=== PATIENT | female | born 1935 | race Caucasian/White ===

== ENCOUNTER 2016-05-06 14:44 | Emergency (ER) | payer MEDICARE ==
[2016-05-06] MEDS ORDERED: Albuterol 2.5 MG/3 ML NEB.SOL* (0.083%) INH ONE (17:33)
[2016-05-06] MEDS ORDERED: Ipratropium 0.5MG/2.5ML NEB* 0.5 MG/2.5 ML NEB.SOLN INH ONE (17:33)
--- NOTE | 2016-05-06 17:34 | UC ---
Respiratory Complaint HPI - HPI Summary HPI Summary: 80 yo female with a hx of COPD presents with 2 1/2 wk hx of sinus pressure and pain/cough and wheezing using rescue inhaler feels winded - History of Current Complaint Chief Complaint: UCGeneralIllness Stated Complaint: CHEST CONGESTION, AND COUGH Time Seen by Provider: 05/06/16 17:01 Hx Obtained From: Patient Onset/Duration: Gradual Onset, Lasting Weeks - 2 1/2 Timing: Constant Severity Initially: Mild Severity Currently: Moderate Pain Intensity: 0 Character: Cough: Productive Aggravating Factors: Nothing Alleviating Factors: Bronchodilator Associated Signs And Symptoms: Positive: Dyspnea, Nasal Congestion, Sinus Discomfort - Allergies/Home Medications Allergies/Adverse Reactions: Allergies Allergy/AdvReac Type Severity Reaction Status Date / Time Penicillins Allergy Severe Swelling Verified 05/06/16 16:27 Of Face,Lips,& Throat Tetanus Toxoid, Adsorbed Allergy Severe See Comment Verified 05/06/16 16:27 bee stings Allergy Severe Swelling Uncoded 05/06/16 16:27 Of Face,Lips,& Throat PMH/Surg Hx/FS Hx/Imm Hx Endocrine History Of: Denies: Diabetes Cardiovascular History Of: Reports: Hypertension Denies: Pacemaker/ICD Respiratory History Of: Reports: Asthma - Surgical History Surgical History: Yes Surgery Procedure, Year, and Place: teeth extracted; R knee meniscus repair; GB removed,cataracts - Social History Alcohol Use: Rare Substance Use Type: None Smoking Status (MU): Former Smoker Review of Systems Constitutional: Negative Skin: Negative Eyes: Negative ENT: Nasal Discharge Respiratory: Cough Cardiovascular: Negative Gastrointestinal: Negative Genitourinary: Negative Motor: Negative Neurovascular: Negative Musculoskeletal: Negative Neurological: Negative Psychological: Negative All Other Systems Reviewed And Are Negative: Yes Physical Exam Triage Information Reviewed: Yes Appearance: Well-Appearing, No Pain Distress, Well-Nourished Vital Signs: Initial Vital Signs Temp 97.8 F 05/06/16 16:28 Pulse 82 05/06/16 16:28 Resp 18 05/06/16 16:28 BP 92/71 05/06/16 16:28 Pulse Ox 100 05/06/16 16:28 Eyes: Positive: Conjunctiva Clear ENT: Positive: Hearing grossly normal. Negative: Nasal congestion, Nasal drainage, Tonsillar exudate, Trismus, Muffled/hoarse voice Neck: Positive: Nontender, No Lymphadenopathy Respiratory: Positive: No respiratory distress, No accessory muscle use, Wheezing Cardiovascular: Positive: RRR, No Murmur. Negative: Tachycardia, Bradycardia Musculoskeletal: Positive: ROM Intact, No Edema Neurological: Positive: Alert Skin Exam: Normal UC Diagnostic Evaluation - Laboratory O2 Sat by Pulse Oximetry: 100 - normal/not hypoxic Re-Evaluation - Re-Evaluation First Eval Re-Evaluation Time: 19:40 Change: Improved - lungs CTA Respiratory Course/Dx - Differential Dx/Diagnosis Provider Diagnoses: acute bronchitis Discharge - Discharge Plan Condition: Stable Disposition: HOME Prescriptions: Azithromycin TAB* [Zithromax TAB*] 250 mg PO DAILY #6 tab Patient Education Materials: Acute Bronchitis (ED) Referrals: Stephania Yanez MD [Primary Care Provider] - 4 Days
--- NOTE | 2016-05-06 18:07 | RAD ---
INDICATION: Cough and wheeze COMPARISON: Chest x-ray May 09, 2008 TECHNIQUE: PA and lateral dual-energy views were obtained. FINDINGS: Bones/Soft Tissues: There are no acute bony findings. Cardiomediastinal: The cardiomediastinal silhouette is normal. Lungs: There are no infiltrates. Pleura: There are no pleural effusions. Other: None IMPRESSION: NO ACTIVE DISEASE.
[2016-05-06 18:47] VITALS: BP 153/68
== END 2016-05-06 18:59 | disposition home or self-care (01) ==
LOC: UCEAST 14:44
DX: J20.9 Acute bronchitis, unspecified (principal); Z88.0 Allergy status to penicillin; Z87.891 Personal history of nicotine dependence
CPT/HCPCS: 71020; 99212; G0463; J7644

== ENCOUNTER 2016-07-25 09:38 | Emergency (ER) | payer MEDICARE ==
[2016-07-25 10:11] VITALS: BP 119/60
--- NOTE | 2016-07-25 10:51 | UC ---
Syncope/New Syncope HPI - HPI Summary HPI Summary: The patient comes in today for: 1. Cough, dyspnea, syncope: Onset: Cough x 4 days. Her syncopal episode was last night. Palliative/provocative: Nothing makes her symptoms better or worse. Quality: "Sounds like a horn." Region: Lungs. Severity: 0/10 Time: Cough lasts a few seconds. Associated symptoms: Event: She was in the shower last night. One minute, she was showering and the next she knows is that she is on the floor of the shower. She tried to get up, but fell back down. She screamed and yelled for her . ABout 15 minutes later, he came. She was pulled up by him and she walked to her bed where she went to sleep. Chest pain: None. Lightheaded/near syncope ever since she got up this morning. She denies any heart problems, but she had a TIA 4-5 years ago. She has COPD, emphysema. * - History Of Current Complaint Chief Complaint: UCRespiratory Stated Complaint: URI Time Seen by Provider: 07/25/16 10:44 Hx Obtained From: Patient, Family/Manager [employer] Hx Last Menstrual Period: n/a - Allergies/Home Medications Allergies/Adverse Reactions: Allergies Allergy/AdvReac Type Severity Reaction Status Date / Time Penicillins Allergy Severe Swelling Verified 05/06/16 16:27 Of Face,Lips,& Throat Tetanus Toxoid, Adsorbed Allergy Severe See Comment Verified 05/06/16 16:27 bee stings Allergy Severe Swelling Uncoded 05/06/16 16:27 Of Face,Lips,& Throat Home Medications: Home Medications Fluticasone HFA 220 mcg(NF) [Flovent Hfa 220 Mcg(NF)] 07/25/16 [History] PMH/Surg Hx/FS Hx/Imm Hx Previously Healthy: No Endocrine History Of: Reports: Dyslipidemia Denies: Diabetes, Thyroid Disease, Hyperthyroidism, Hypothyroidism Cardiovascular History Of: Reports: Hypertension Denies: Cardiac Disorders, Pacemaker/ICD, Myocardial Infarction, Congestive Heart Failure, Atrial Fibrillation, Deep Vein Thrombosis, Bleeding Disorders Respiratory History Of: Reports: Asthma Denies: COPD, Bronchitis, Pneumonia, Pulmonary Embolism GI/ History Of: Denies: Gastroesophageal Reflux, Ulcer, Gastrointestinal Bleed, Gall Bladder Disease, Kidney Stones, Diverticulitis, Renal Disease, Urosepsis Neurological History Of: Reports: TIA - She had this about 4 years ago. Denies: CVA, Dementia, Seizures, Migraine Psychological History Of: Reports: Depression Denies: Anxiety, Bipolar Disorder, Schizophrenia, Post Traumatic Stress Disorder Cancer History Of: Denies: Lung Cancer, Colorectal Cancer, Breast Cancer, Prostate Cancer, Cervical Cancer Other History Of: Anticoagulant Therapy - Plavix Negative For: HIV, Hepatitis B, Hepatitis C - Surgical History Surgical History: Yes Surgery Procedure, Year, and Place: teeth extracted; R knee meniscus repair; GB removed,cataracts - Family History Known Family History: Positive: Cardiac Disease, Hypertension - Social History Occupation: Retired Alcohol Use: Rare Substance Use Type: None Smoking Status (MU): Former Smoker Review of Systems Constitutional: Negative Skin: Negative Eyes: Negative ENT: Nasal Discharge - white. Respiratory: Cough - White Cardiovascular: Negative Gastrointestinal: Negative Genitourinary: Negative All Other Systems Reviewed And Are Negative: Yes Physical Exam Triage Information Reviewed: Yes Appearance: Well-Appearing, No Pain Distress, Well-Nourished Vital Signs: Initial Vital Signs Temp 98.1 F 07/25/16 09:57 Pulse 90 07/25/16 09:57 Resp 20 07/25/16 09:57 BP 119/60 07/25/16 09:57 Pulse Ox 97 07/25/16 09:57 Vital Signs Reviewed: Yes Eyes: Positive: Conjunctiva Clear. Negative: Discharge ENT: Positive: Other: - Slight tenderness to palpation of the maxillary sinuses.. Negative: Hearing grossly normal - Hard of hearing, but does OK with raised voice., Pharyngeal erythema, Nasal congestion, Nasal drainage, TM bulging , TM dull, TM red, Tonsillar swelling, Tonsillar exudate Dental: Negative: Gross Decay/Caries @, Dental Fracture @ Neck: Positive: Supple, Nontender, No Lymphadenopathy, Other: - No bruits and carotid artery pulses were 1+/2 x 2. Respiratory: Positive: Lungs clear, No respiratory distress, No accessory muscle use. Negative: Crackles, Wheezing, Expiration Cardiovascular: Positive: RRR, No Murmur Abdomen Description: Positive: Nontender, No Organomegaly, Soft. 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 I told her that these symptoms could be the only warning of something serious as a stroke or CO. She still did not want to go to the ER. She was told of her treatment options and at this time she agrees only to switching out her albuterol for Combivent and an antibiotic if she does not improve (and particularly if she gets worse) over the next few days. - Differential Dx/Diagnosis Differential Diagnosis/HQI/PQRI: Dysrhythmia, Seizure, Transient Ischemic Attack Provider Diagnoses: Upper respiratory infection. COPD. Syncopal episode. Near syncope. Discharge - Discharge Plan Condition: Stable Disposition: HOME Patient Education Materials: Near Syncope (ED), Syncope (ED), COPD (Chronic Obstructive Pulmonary Disease) (ED), Sinusitis (ED) Referrals: Stephania Yanez MD [Primary Care Provider] - As Soon As Possible (If you are not going to the ER at this time, please contact your primary care provider's office for an appointment as soon as you can. If you get worse, please be seen sooner in the ER.)
== END 2016-07-25 11:35 | disposition left against medical advice (07) ==
LOC: UCEAST 09:38
DX: J06.9 Acute upper respiratory infection, unspecified (principal); J44.9 Chronic obstructive pulmonary disease, unspecified; R55 Syncope and collapse; E78.5 Hyperlipidemia, unspecified; I10 Essential (primary) hypertension; J45.909 Unspecified asthma, uncomplicated; F32.9 Major depressive disorder, single episode, unspecified; Z87.891 Personal history of nicotine dependence; Z86.73 Personal history of transient ischemic attack (TIA), and cerebral infarction without residual deficits; Z88.0 Allergy status to penicillin; Z88.7 Allergy status to serum and vaccine; Z91.030 Bee allergy status
CPT/HCPCS: 93005; 99212; G0463

== ENCOUNTER 2017-03-03 12:46 | Emergency (ER) | payer MEDICARE ==
[2017-03-03 13:06] VITALS: BP 147/63
--- NOTE | 2017-03-03 13:44 | UC ---
Skin Complaint HPI - HPI Summary HPI Summary: 81 yo with left ant byrd pain /redness and swelling x 2-3 days feels like a byrd splint no f/c no n/c no trauma hx of angioedema with PCN - History of Current Complaint Chief Complaint: UCLowerExtremity Time Seen by Provider: 03/03/17 13:26 Stated Complaint: RED PAIN FRONT OF LOWER LEG Hx Obtained From: Patient Hx Last Menstrual Period: n/a Onset/Duration: Gradual Onset, Lasting Days Skin Exposure Onset/Duration: Minutes Ago Timing: Constant Onset Severity: Mild Current Severity: Mild Pain Intensity: 2 Pain Scale Used: 0-10 Numeric Character: Swelling, Redness, Painful Aggravating Factor(s): Touch, Other - wt bearing Alleviating Factor(s): Nothing Associated Signs & Symptoms: Positive: Tenderness - Allergy/Home Medications Allergies/Adverse Reactions: Allergies Allergy/AdvReac Type Severity Reaction Status Date / Time Penicillins Allergy Severe Swelling Verified 03/03/17 12:54 Of Face,Lips,& Throat Tetanus Toxoid, Adsorbed Allergy Severe See Comment Verified 03/03/17 12:54 bee stings Allergy Severe Swelling Uncoded 03/03/17 12:54 Of Face,Lips,& Throat Review of Systems Constitutional: Negative Skin: Negative Eyes: Negative ENT: Negative Respiratory: Negative Cardiovascular: Negative Gastrointestinal: Negative Genitourinary: Negative Motor: Negative Neurovascular: Negative Musculoskeletal: Negative Neurological: Negative Psychological: Negative Is Patient Immunocompromised?: No All Other Systems Reviewed And Are Negative: Yes PMH/Surg Hx/FS Hx/Imm Hx Previously Healthy: Yes Other History Of: Anticoagulant Therapy - Plavix Negative For: HIV, Hepatitis B, Hepatitis C - Surgical History Surgical History: Yes Surgery Procedure, Year, and Place: teeth extracted; R knee meniscus repair; GB removed,cataracts, APPENDECTOMY - Family History Known Family History: Positive: Cardiac Disease, Hypertension - Social History Alcohol Use: Rare Substance Use Type: None Smoking Status (MU): Former Smoker Physical Exam Triage Information Reviewed: Yes Appearance: Well-Appearing, No Pain Distress, Well-Nourished Vital Signs: Initial Vital Signs Temp 97.6 F 03/03/17 12:50 Pulse 84 03/03/17 12:50 Resp 18 03/03/17 12:50 BP 147/63 03/03/17 12:50 Pulse Ox 100 03/03/17 12:50 Vital Signs Reviewed: Yes Eyes: Positive: Conjunctiva Clear ENT: Negative: Hearing grossly normal, Nasal congestion, Nasal drainage, Trismus , Muffled voice, Hoarse voice Neck: Positive: Supple Respiratory: Positive: Lungs clear, Normal breath sounds, No respiratory distress Cardiovascular: Positive: RRR, No Murmur Abdomen Description: Positive: Nontender, No Organomegaly Musculoskeletal: Positive: ROM Intact, Edema @ - left pre tibial Neurological: Positive: Alert Skin Exam: Normal Course/Dx - Diagnoses Provider Diagnoses: cellulitis left lower extremity Discharge - Discharge Plan Condition: Stable Disposition: HOME Prescriptions: DOXYcycline CAP(*) [DOXYcycline 100MG CAP(*)] 100 mg PO BID #14 cap Referrals: Stephania Yanez MD [Primary Care Provider] - 3 Days (recheck in 3-5 days) Additional Instructions: recheck sooner if symptoms worsen Images Front/Back of Body, Lg (Titus): 1 - slight swelling and erythema/warm/no obvious skin defects but has cracked/ dry skin, normal gait , good dorsalis pedal pulse
== END 2017-03-03 13:53 | disposition home or self-care (01) ==
LOC: UCEAST 12:46
DX: Z87.891 Personal history of nicotine dependence (principal); L03.116 Cellulitis of left lower limb
CPT/HCPCS: 99212; G0463

== ENCOUNTER 2017-07-21 16:38 | Emergency (ER) | payer MEDICARE ==
[2017-07-21] MEDS ORDERED: NS 0.9% 1000 ML* 1,000 ML IV ONE (17:12)
[2017-07-21 17:34] LABS: ABS Basophils 0 10^3/ul (0-0.2); ABS Eosinophils 0.1 10^3/ul (0-0.6); ABS Lymphocytes 0.2 10^3/ul (1.0-4.8); ABS Monocytes 0.4 10^3/ul (0-0.8); ABS Nucleated RBC 0 10^3/ul; Eosinophil % 1.5 % (0-6); Hematocrit 42 % (35-47); Mean Corpuscular HGB Conc 33 g/dl (31-36); Mean Corpuscular Hemoglobin 30 pg (27-31); Mean Corpuscular Volume 91 fL (80-97); Mean Platelet Volume 7.7 um3 (7.4-10.4); Nucleated Red Blood Cells % 0; Platelet Count 178 10^3/ul (150-450); Red Blood Count 4.62 10^6/ul (4.0-5.4); Red Cell Distribution Width 14 % (10.5-15); White Blood Count 5.8 10^3/ul (3.5-10.8)
[2017-07-21 17:45] LABS: INR 0.98 (0.77-1.02)
[2017-07-21 17:48] LABS: EGFR Non-African American 50.7 (>60)
--- NOTE | 2017-07-21 18:17 | RAD ---
INDICATION: Cough, sepsis. History of COPD. COMPARISON: May 06, 2016 TECHNIQUE: Dual energy PA and routine lateral views of the chest were obtained. REPORT: Elevated lung volumes. Mild prominence of the interstitial markings. No focal pulmonary lesion, compelling alveolar consolidation, pleural effusion, pneumothorax. The heart, pulmonary vasculature, and mediastinal contours are unremarkable. IMPRESSION: Stigmata of obstructive lung disease. No acute pulmonary or cardiac process evident.
[2017-07-21] MEDS ORDERED: Oseltamivir CAP* 75 MG CAP PO ONE (18:32)
[2017-07-21 19:01] VITALS: BP 118/54
--- NOTE | 2017-07-21 21:29 | ED ---
Mahad Prado Thomas, scribed for Mario Alberto Coto MD on 07/21/17 at 1709 . HPI Febrile Illness - HPI Summary HPI Summary: The patient is an 81 year old female accompanied by two family members and brought in by ambulance with generalized weakness, fever, a mildly productive cough, nausea, and vomiting for the last three days. She reports decreased PO intake. The patient denies urinary symptoms, constipation, diarrhea, or any pain. - History of Current Complaint Chief Complaint: EDWeakness Time Seen by Provider: 07/21/17 16:46 Hx Obtained From: Patient Hx Last Menstrual Period: n/a Onset/Duration: Started Days Ago - 3, Still Present Timing: Constant Current Severity: Moderate Pain Intensity: 0 Pain Scale Used: 0-10 Numeric Aggravating Factors: Nothing Alleviating Factors: Nothing Associated Signs and Symptoms: Other: - Generalized weakness, mildly productive cough, nausea, vomiting, decreased PO intake; NEGATIVE: urinary symptoms, constipation, diarrrhea, pain - Allergy/Home Medications Allergies/Adverse Reactions: Allergies Allergy/AdvReac Type Severity Reaction Status Date / Time MS Penicillins [Penicillins] Allergy Severe Swelling Verified 03/03/17 12:54 Of Face,Lips,& Throat MS Tetanus Toxoid, Adsorbed Allergy Severe See Comment Verified 03/03/17 12:54 [Tetanus Toxoid, Adsorbed] bee stings Allergy Severe Swelling Uncoded 03/03/17 12:54 Of Face,Lips,& Throat Home Medications: Home Medications Cholecalciferol TAB* [Vitamin D TAB*] 1,000 unit PO DAILY 07/21/17 [History Confirmed 07/21/17] Citalopram TAB* [CeleXA TAB*] 10 mg PO DAILY 07/21/17 [History Confirmed ] Clopidogrel TAB* [Plavix TAB*] 75 mg PO DAILY 07/21/17 [History Confirmed ] Cyanocobalamin TAB* [Vitamin B12 TAB*] 1,000 mcg PO DAILY 07/21/17 [History Confirmed 07/21/17] DOXYcycline CAP(*) [DOXYcycline 100MG CAP(*)] 100 mg PO BID 07/21/17 [History Confirmed 07/21/17] Hydrochlorothiazide TAB* [Hydrodiuril TAB*] 12.5 mg PO DAILY 07/21/17 [History Confirmed 07/21/17] Ibuprofen TAB* [Advil TAB*] 200 mg PO Q6H PRN 07/21/17 [History Confirmed ] Lovastatin (NF) [Mevacor (NF)] 40 mg PO DAILY 07/21/17 [History Confirmed ] Magnesium Oxide [Magnesium] 250 mg PO DAILY 07/21/17 [History Confirmed 07/21/17 ] Meclizine TAB* [Antivert 12.5 TAB*] 25 mg PO TID PRN 07/21/17 [History Confirmed 07/21/17] Nortriptyline CAP* [Pamelor CAP*] 10 mg PO BEDTIME 07/21/17 [History Confirmed 07/21/17] Potassium Chlor TAB* [Klor Con ER TAB*] 10 meq PO DAILY 07/21/17 [History Confirmed 07/21/17] PMH/Surg Hx/FS Hx/Imm Hx Endocrine/Hematology History: Reports: Hx Anticoagulant Therapy - Plavix Denies: Hx Diabetes, Hx Thyroid Disease Cardiovascular History: Reports: Hx Hypertension Denies: Hx Congestive Heart Failure, Hx Deep Vein Thrombosis, Hx Myocardial Infarction, Hx Pacemaker/ICD Respiratory History: Reports: Hx Asthma, Hx Chronic Obstructive Pulmonary Disease (COPD) Denies: Hx Lung Cancer, Hx Pneumonia, Hx Pulmonary Embolism GI History: Denies: Hx Gall Bladder Disease, Hx Gastrointestinal Bleed, Hx Ulcer, Hx Urosepsis History: Denies: Hx Kidney Stones, Hx Renal Disease Sensory History: Denies: Hx Hearing Aid Neurological History: Reports: Hx Transient Ischemic Attacks (TIA) - She had this about 4 years ago. Denies: Hx Dementia, Hx Migraine, Hx Seizures Psychiatric History: Reports: Hx Depression Denies: Hx Anxiety, Hx Panic Disorder, Hx Schizophrenia, Hx Bipolar Disorder - Cancer History Hx Chemotherapy: No Hx Radiation Therapy: No - Surgical History Surgery Procedure, Year, and Place: teeth extracted; R knee meniscus repair; GB removed,cataracts, APPENDECTOMY - Immunization History Date of Tetanus Vaccine: Unknown Infectious Disease History: No Infectious Disease History: Denies: Hx Clostridium Difficile, Hx Hepatitis, Hx Human Immunodeficiency Virus (HIV), Hx of Known/Suspected MRSA, Hx Shingles, Hx Tuberculosis, Hx Known/ Suspected VRE, Hx Known/Suspected VRSA, History Other Infectious Disease, Traveled Outside the [place] in Last 30 Days - Family History Known Family History: Positive: Cardiac Disease, Hypertension - Social History Alcohol Use: Rare Substance Use Type: Reports: None Smoking Status (MU): Former Smoker Review of Systems Positive: Fever, Other - Generalized weakness Positive: Cough Positive: Vomiting, Nausea, Other - Decreased PO intake; NEGATIVE: constipation. Negative: Diarrhea Positive: no symptoms reported All Other Systems Reviewed And Are Negative: Yes Physical Exam - Summary Physical Exam Summary: Appearance: The patient is well-nourished in no acute distress and in no acute pain. Skin: The skin is warm and dry and skin color reflects adequate perfusion. HEENT: The head is normocephalic and atraumatic. The pupils are equal and reactive. The conjunctivae are clear and without drainage. Nares are patent and without drainage. Mouth reveals dry mucous membranes and the throat is without erythema and exudate. The external ears are intact. The ear canals are patent and without drainage. The tympanic membranes are intact. Neck: the neck is supple with full range of motion and non-tender. There are no carotid bruits. There is no neck vein distension. Respiratory: Chest is non-tender. Lungs are clear to auscultation and breath sounds are symmetrical and equal. Cardiovascular: Heart is tachycardic and regular rhythm. There is no murmur or rub auscultated. There is no peripheral edema and pulses are symmetrical and equal. Abdomen: Abdomen is soft and non-tender. There are normal bowel sounds heard in all four quadrants and there is no organomegaly palpated. Musculoskeletal: There is no back tenderness noted. Extremities are non-tender with full range of motion. There is good capillary refill. There is no peripheral edema or calf tenderness elicited. Neurological: Patient is alert and oriented to person, place and time. The patient has symmetrical motor strength in all four extremities. Cranial nerves are grossly intact. Deep tendon reflexes are symmetrical and equal in all four extremities. Psychiatric: The patient has an appropriate affect and does not exhibit any anxiety or depression. Triage Information Reviewed: Yes Vital Signs On Initial Exam: Initial Vitals Temp Pulse Resp BP Pulse Ox 101.2 F 103 20 113/51 97 07/21/17 16:42 07/21/17 16:42 07/21/17 16:42 07/21/17 16:42 07/21/17 16:42 Vital Signs Reviewed: Yes Diagnostics - Vital Signs Vital Signs Temp Pulse Resp BP Pulse Ox 07/21/17 16:42 101.2 F 103 20 113/51 97 - Laboratory Lab Results: Lab Results 07/21/17 07/21/17 07/21/17 Range/Units 17:20 17:20 17:20 WBC 5.8 (3.5-10.8) 10^3/ul RBC 4.62 (4.0-5.4) 10^6/ul Hgb 14.0 (12.0-16.0) g/dl Hct 42 (35-47) % MCV 91 (80-97) fL MCH 30 (27-31) pg MCHC 33 (31-36) g/dl RDW 14 (10.5-15) % Plt Count 178 (150-450) 10^3/ul MPV 7.7 (7.4-10.4) um3 Neut % (Auto) 87.2 H (38-83) % Lymph % (Auto) 4.0 L (25-47) % Hood % (Auto) 6.8 (0-7) % Eos % (Auto) 1.5 (0-6) % Baso % (Auto) 0.5 (0-2) % Absolute Neuts (auto) 5.0 (1.5-7.7) 10^3/ul Absolute Lymphs (auto) 0.2 L (1.0-4.8) 10^3/ul Absolute Monos (auto) 0.4 (0-0.8) 10^3/ul Absolute Eos (auto) 0.1 (0-0.6) 10^3/ul Absolute Basos (auto) 0 (0-0.2) 10^3/ul Absolute Nucleated RBC 0 10^3/ul Nucleated RBC % 0 INR (Anticoag Therapy) 0.98 (0.77-1.02) APTT 26.2 (26.0-36.3) seconds Sodium 134 L (139-145) mmol/L Potassium 3.4 L (3.5-5.0) mmol/L Chloride 99 L (101-111) mmol/L Carbon Dioxide 26 (22-32) mmol/L Anion Gap 9 (2-11) mmol/L BUN 27 H (6-24) mg/dL Creatinine 1.04 H (0.51-0.95) mg/dL Est GFR ( Amer) 65.2 (>60) Est GFR (Non-Af Amer) 50.7 (>60) BUN/Creatinine Ratio 26.0 H (8-20) Glucose 126 H (70-100) mg/dL Lactic Acid (0.5-2.0) mmol/L Calcium 8.9 (8.6-10.3) mg/dL Total Bilirubin 0.40 (0.2-1.0) mg/dL AST 16 (13-39) U/L ALT 13 (7-52) U/L Alkaline Phosphatase 78 (34-104) U/L Troponin I 0.01 (<0.04) ng/mL C-Reactive Protein 12.02 H (< 5.00) mg/L Total Protein 6.6 (6.4-8.9) g/dL Albumin 3.9 (3.2-5.2) g/dL Globulin 2.7 (2-4) g/dL Albumin/Globulin Ratio 1.4 (1-3) Influenza A (Rapid) (Negative) Influenza B (Rapid) (Negative) 07/21/17 07/21/17 Range/Units 17:20 17:23 WBC (3.5-10.8) 10^3/ul RBC (4.0-5.4) 10^6/ul Hgb (12.0-16.0) g/dl Hct (35-47) % MCV (80-97) fL MCH (27-31) pg MCHC (31-36) g/dl RDW (10.5-15) % Plt Count (150-450) 10^3/ul MPV (7.4-10.4) um3 Neut % (Auto) (38-83) % Lymph % (Auto) (25-47) % Hood % (Auto) (0-7) % Eos % (Auto) (0-6) % Baso % (Auto) (0-2) % Absolute Neuts (auto) (1.5-7.7) 10^3/ul Absolute Lymphs (auto) (1.0-4.8) 10^3/ul Absolute Monos (auto) (0-0.8) 10^3/ul Absolute Eos (auto) (0-0.6) 10^3/ul Absolute Basos (auto) (0-0.2) 10^3/ul Absolute Nucleated RBC 10^3/ul Nucleated RBC % INR (Anticoag Therapy) (0.77-1.02) APTT (26.0-36.3) seconds Sodium (139-145) mmol/L Potassium (3.5-5.0) mmol/L Chloride (101-111) mmol/L Carbon Dioxide (22-32) mmol/L Anion Gap (2-11) mmol/L BUN (6-24) mg/dL Creatinine (0.51-0.95) mg/dL Est GFR ( Amer) (>60) Est GFR (Non-Af Amer) (>60) BUN/Creatinine Ratio (8-20) Glucose (70-100) mg/dL Lactic Acid 1.0 (0.5-2.0) mmol/L Calcium (8.6-10.3) mg/dL Total Bilirubin (0.2-1.0) mg/dL AST (13-39) U/L ALT (7-52) U/L Alkaline Phosphatase (34-104) U/L Troponin I (<0.04) ng/mL C-Reactive Protein (< 5.00) mg/L Total Protein (6.4-8.9) g/dL Albumin (3.2-5.2) g/dL Globulin (2-4) g/dL Albumin/Globulin Ratio (1-3) Influenza A (Rapid) Positive A (Negative) Influenza B (Rapid) Negative (Negative) Result Diagrams: 07/21/17 17:20 07/21/17 17:20 Lab Statement: Any lab studies that have been ordered have been reviewed, and results considered in the medical decision making process. - Radiology CXR Xray Interpretation: No Acute Changes - IMPRESSION: Stigmata of obstructive lung disease. No acute pulmonary or cardiac process evident. Dr. Coto has reviewed this report. Radiology Interpretation Completed By: Radiologist Course/Dx - Course Course Of Treatment: Ms. Francois and her both came down with URI symptoms a couple days ago. She has not been eating and has gotten very weak. She felt very much improved after IV NS here and was found to be positive for Influenza A. - Diagnoses Provider Diagnoses: Dehydration, Influenza Discharge - Sign-Out/Discharge Documenting (check all that apply): Discharge - Discharge Plan Condition: Stable Disposition: HOME Prescriptions: Oseltamivir CAP* [Tamiflu CAP*] 75 mg PO BID #19 cap Patient Education Materials: Dehydration (ED), Influenza (ED) Referrals: Stephania Yanez MD [Primary Care Provider] - 3 Days Additional Instructions: Follow up with your primary care physician in three days. Return to the emergency department for any new or worsening symptoms. - Billing Disposition and Condition Condition: STABLE Disposition: HOME The documentation as recorded by the Mahad castellanos Thomas accurately reflects the service I personally performed and the decisions made by , Mario Alberto Coto MD.
== END 2017-07-21 19:00 | disposition home or self-care (01) ==
LOC: ED 16:38
DX: J10.1 Influenza due to other identified influenza virus with other respiratory manifestations (principal); E86.0 Dehydration; Z87.891 Personal history of nicotine dependence; Z88.0 Allergy status to penicillin
CPT/HCPCS: 36415; 71046; 80053; 83605; 84484; 85025; 85610; 85730; 86140; 87040; 87502; 96360; 99283; A9270-GY

== ENCOUNTER 2017-09-11 09:13 | Emergency (ER) | payer MEDICARE ==
[2017-09-11 09:22] VITALS: BP 129/65
--- NOTE | 2017-09-11 10:57 | RAD ---
INDICATION: Left rib injury. TECHNIQUE: 5 views of the left ribs were obtained. FINDINGS: No fracture or significant focal osseous abnormality is seen. There is a small calcific nodule which projects over the left midlung. The lungs are otherwise hyperinflated and clear. IMPRESSION: NO EVIDENCE FOR FRACTURE.
--- NOTE | 2017-09-11 11:21 | UC ---
Mehran Prado Gabriel, [facility] 09/11/17 at 1014 . Truncal Trauma HPI - HPI Summary HPI Summary: This patient is a 81 year old F [place] [facility] [place] her s /p fall that occurred 09-08-17 but she states that pain has gotten worse since. Pt fell over a weed stevan and landed on her left side injuring her ribs. The patient rates the pain 6/10 in severity. Symptoms aggravated by deep breaths. Patient reports left flank pain and trouble breathing secondary to pain. MD note: Vital signs stable, pulse ox 100, respiratory rate 17, 6/10 left thorax pain. Visit history: noncontributory to present complaint. She is on antihypertensive medications. Nurse note: left sided rib injury after tripping over a weed stevan in the garage landed on cement - History Of Current Complaint Chief Complaint: UCGeneralIllness Stated Complaint: SIDE PAIN Time Seen by Provider: 09/11/17 09:59 Hx Obtained From: Patient Hx Last Menstrual Period: n/a Onset/Duration: Still Present Onset Of Pain: Immediate Severity Initially: Mild Severity Currently: Moderate Pain Intensity: 6 Pain Scale Used: 0-10 Numeric Mechanism Of Injury: Blunt Trauma Aggravating Factor(s): Deep Breathing - Allergies/Home Medications Allergies/Adverse Reactions: Allergies Allergy/AdvReac Type Severity Reaction Status Date / Time Penicillins Allergy Swelling Verified 09/11/17 09:23 bee stings Allergy Severe Swelling Uncoded 09/11/17 09:56 Of Face,Lips,& Throat PMH/Surg Hx/FS Hx/Imm Hx Cardiovascular History: Hypertension Respiratory History: COPD, Asthma Neurological History: TIA Other History Of: Anticoagulant Therapy - Plavix Negative For: HIV, Hepatitis B, Hepatitis C - Surgical History Surgical History: Yes Surgery Procedure, Year, and Place: teeth extracted; R knee meniscus repair; GB removed,cataracts, APPENDECTOMY - Family History Known Family History: Positive: Cardiac Disease, Hypertension - Social History Occupation: Retired Lives: With Family Alcohol Use: Rare Substance Use Type: None Smoking Status (MU): Former Smoker Review of Systems Constitutional: Other - mechanical fall Genitourinary: Other - left flank pain All Other Systems Reviewed And Are Negative: Yes - Comments Additional Review of Systems Comments: Positive: left flank pain and trouble breathing secondary to pain. Physical Exam - Summary Physical Exam Summary: Appearance: The patient is well-appearing, is in no pain distress, and is well- nourished. Eyes: Conjunctiva are clear. ENT: The hearing is grossly normal, the pharynx is normal, and the TMs are normal. There is no muffled or hoarse voice. Neck: The neck is supple and there is no lymphadenopathy. Respiratory: The chest is nontender. The lungs are clear, there are normal breath sounds, and there is no respiratory distress. Cardiovascular: Heart is regular rate and rhythm. There is no murmur. Abdomen: The abdomen is soft and nontender. There is no organomegaly. Bowel sounds: present Musculoskeletal: Strength is intact. The patient moves all extremities. THE PAIN SPREADS FROM THE ANTERIOR AXILLARY LINE AT T8 AROUND TO THE LEFT CHEST AND INTO THE SPINE. THE LEFT THORAX HAS NO CREPITUS. THERE IS POINT TENDERNESS OVER THE 8TH, 9TH, 10TH, AND 11TH RIB ON THE LEFT AXILLARY AREA. BREATHING IS UNCOMFORTABLE, NO CVA TENDERNESS Neurological: The patient is alert. Psychological: The patient displays age appropriate behavior Skin: Negative for rashes. Triage Information Reviewed: Yes Vital Signs: Initial Vital Signs Temp 97 F 09/11/17 09:17 Pulse 83 09/11/17 09:17 Resp 17 09/11/17 09:17 BP 129/65 09/11/17 09:17 Pulse Ox 100 09/11/17 09:17 Vital Signs Reviewed: Yes Diagnostics - Radiology Rib Xray Radiology Interpretation Completed By: Radiologist - NO EVIDENCE FOR FRACTURE. Dr. James has reviewed this report. Truncal Trauma Course/Dx - Course Course Of Treatment: 81 y/o with fall on left thorax. X-ray is consistent with contusion without injury the lung or rib fracture. I discussed with the patient a need for deep breathing and that it will take a while for it completely resolved. She understands the need to return for further evaluation if she develops a cough or temperature that might suggest PNA. Elevated BP but has current hypertension diagnosis and treatment. This should be rechecked a few times in the next month. Medications have been included in the original chart and reviewed. - Differential Dx/Diagnosis Differential Diagnosis/HQI/PQRI: Other - rib bruise vs fracture Provider Diagnoses: contusion left thorax Discharge - Sign-Out/Discharge Documenting (check all that apply): Discharge/Admit/Transfer - Discharge Plan Condition: Stable Disposition: HOME Patient Education Materials: Rib Fracture (ED) Referrals: Stephania Yanez MD [Primary Care Provider] - Additional Instructions: Your blood pressure reading today was 129/65. Follow-up with your primary care provider within 4 weeks for blood pressure readings and further evaluation. First number should be 120 or less. WE DISCUSSED: 1. You have bruised your ribs. There is no evidence of fracture. 2. Use warm moist heat to this area in the morning. Use ice if you feel pain after activity during the day. 3. There is no evidence that you have hurt your kidney. 4. If you have any increased pain, temperature, difficulty breathing or a new cough, go to the emergency department. 5. As we discussed, this condition can take a while to heal, even though your ribs are not broken. - Billing Disposition and Condition Condition: STABLE Disposition: Home The documentation as recorded by the Mehran castellanos Gabriel accurately reflects the service I personally performed and the decisions made by me, Baldev James MD.
== END 2017-09-11 11:17 | disposition home or self-care (01) ==
LOC: UCEAST 09:13
DX: S20.212A Contusion of left front wall of thorax, initial encounter (principal); J44.9 Chronic obstructive pulmonary disease, unspecified; I10 Essential (primary) hypertension; Z88.0 Allergy status to penicillin; Z91.030 Bee allergy status; Z87.891 Personal history of nicotine dependence; W19.XXXA Unspecified fall, initial encounter; Y92.9 Unspecified place or not applicable
CPT/HCPCS: 81003; 87086; 99211; G0463

== ENCOUNTER 2019-06-05 13:37 | Emergency (ER) | payer MEDICARE ==
[2019-06-05 14:08] VITALS: BP 147/64
--- NOTE | 2019-06-05 14:43 | UC ---
Syncope/New Syncope HPI - HPI Summary HPI Summary: 83 yo woman, last well on 06/01, but felt so unwell on 06/02 that she did not get out of bed. Her called their daughter on 06/03, concerned becasue she still seemed unwell and noted that she had fainted in the afternoon of 06/03, and also had vomitied. Daughter checked in, made her eat something, temp was 100.4 Onset of back pain on 06/02, prior to the fall, which is worse with inspiration and movement. Took advil yesterday without feeling better, and has not taken anything for pain today Past hx of stroke and COPD, depression and atypical headaches. . - History Of Current Complaint Chief Complaint: UCBackPain Stated Complaint: BACK PAIN Time Seen by Provider: 06/05/19 14:30 Hx Obtained From: Patient, Family/[employer] - here with her daughter Hx Last Menstrual Period: n/a Onset/Duration: Gradual Onset, Lasting Days Activity At Onset: Unknown Context: Unwitnessed, Loss Of Consciousness - with amnesia for the event. Pain Intensity: 5 Aggravating Factor(s): Position Change, Exertion Alleviating Factor(s): Rest Associated Signs And Symptoms: Positive: Decreased Oral Intake, Dizzy, Lightheadedness, Vomiting, Weakness - Risk Factors Cardiac Risk Factors: Hypertension, Prior ME Dysrhythmia Risk Factors: Age Greater Than 45 Risk Factor(s): Plavix - Allergies/Home Medications Allergies/Adverse Reactions: Allergies Allergy/AdvReac Type Severity Reaction Status Date / Time Penicillins Allergy Swelling Verified 06/05/19 14:08 bee stings Allergy Severe Swelling Uncoded 06/05/19 14:08 Of Face,Lips,& Throat Home Medications: Home Medications Cholecalciferol TAB* [Vitamin D TAB*] 1,000 unit PO DAILY 07/21/17 [History Confirmed 06/05/19] Citalopram TAB* [CeleXA TAB*] 10 mg PO DAILY 07/21/17 [History Confirmed ] Clopidogrel TAB* [Plavix TAB*] 75 mg PO DAILY 07/21/17 [History Confirmed ] Cyanocobalamin TAB* [Vitamin B12 TAB*] 1,000 mcg PO DAILY 07/21/17 [History Confirmed 06/05/19] Hydrochlorothiazide TAB* [Hydrodiuril TAB*] 12.5 mg PO DAILY 07/21/17 [History Confirmed 06/05/19] Lovastatin (NF) [Mevacor (NF)] 40 mg PO DAILY 07/21/17 [History Confirmed ] Magnesium Oxide [Magnesium] 250 mg PO DAILY 07/21/17 [History Confirmed 06/05/19 ] Meclizine TAB* [Antivert 12.5 TAB*] 25 mg PO TID PRN 07/21/17 [History Confirmed 06/05/19] Potassium Chlor TAB* [Klor Con ER TAB*] 10 meq PO DAILY 07/21/17 [History Confirmed 06/05/19] Nortriptyline CAP* [Nortriptylline CAP*] 1 dose PO ONCE PRN 06/05/19 [History Confirmed 06/05/19] PMH/Surg Hx/FS Hx/Imm Hx Endocrine History: Dyslipidemia Cardiovascular History: Hypertension Respiratory History: COPD Neurological History: CVA - past stroke, Other - atypical headaches Psychological History: Depression Other History Of: Anticoagulant Therapy - Plavix Negative For: HIV, Hepatitis B, Hepatitis C - Surgical History Surgical History: Yes Surgery Procedure, Year, and Place: teeth extracted; R knee meniscus repair; GB removed,cataracts, APPENDECTOMY - Family History Known Family History: Positive: Cardiac Disease, Hypertension - Social History Occupation: Retired Lives: With Family - lives with her , whose health is precarious Alcohol Use: Rare Substance Use Type: None Smoking Status (MU): Former Smoker Review of Systems All Other Systems Reviewed And Are Negative: Yes Constitutional: Positive: Fever - initially, none now, Fatigue Skin: Positive: Negative Eyes: Negative: Blurred Vision, Diplopia ENT: Positive: Other - hearing loss Respiratory: Positive: Cough - some cough, but not increased from baseline. using increased albuterol x 2 days, about 2x per day, but denies shortnessof breath Cardiovascular: Negative: Palpitations, Chest Pain Gastrointestinal: Positive: Vomiting - one episode, Nausea, Other - no stool x 4 day. Negative: Abdominal Pain Genitourinary: Positive: Negative. Negative: Dysuria, Hematuria, Frequency, Urgency Motor: Positive: Weakness Neurovascular: Positive: Negative Musculoskeletal: Positive: Other: - pain in low thoracic, high lumbar area Neurological/Mental Status: Positive: Negative Psychological: Positive: Negative Is Patient Immunocompromised?: Yes Physical Exam Triage Information Reviewed: Yes Appearance: Ill-Appearing - looks flushed, alert but mildly slow in responses, Other: - Has hearing loss and does not have her hearing aides with her Vital Signs: Initial Vital Signs Temp 96.9 F 06/05/19 14:01 Pulse 91 06/05/19 14:01 Resp 18 06/05/19 14:01 BP 147/64 06/05/19 14:01 Pulse Ox 98 06/05/19 14:01 Eye Exam: Normal, Other - JACKLYN, normal eom ENT: Positive: Pharynx normal, TMs normal Neck: Positive: Supple, Nontender, No Lymphadenopathy Respiratory: Positive: Decreased breath sounds, Crackles - bilateral basilar crackles. Cardiovascular: Positive: RRR, No Murmur, Pulses Normal Abdomen Description: Positive: Nontender, No Organomegaly, Soft Musculoskeletal: Positive: Strength Intact, Other: - tenderness to palpation T 10 to L2 Neurological: Positive: Alert, Muscle Tone Normal Psychological Exam: Normal Skin Exam: Normal Syncope Course/Dx - Course Course Of Treatment: Discussed concern of unwitnessed syncopy with amnesia for the event, back pain preceding her fall, and the many diagnostic possibilities given history of stroke. Advised would be best served in the ER for evaluation including labs. - Differential Dx/Diagnosis Differential Diagnosis/HQI/PQRI: Cerebral Vascular Accident, Coronary Artery Disease, Hypovolemia, Seizure, Transient Ischemic Attack Provider Diagnosis: Syncope - Physician Notification/Consults Discussed Patient Care With: [place] nurse at [facility] [place] Time Discussed With Above Provider: 14:55 Discharge ED - Sign-Out/Discharge Documenting (check all that apply): Patient Departure All imaging exams completed and their final reports reviewed: No Studies - Discharge Plan Condition: Stable Disposition: [facility] Patient Education Materials: Syncope (ED) Referrals: Lata Anderson DO [Primary Care Provider] - Additional Instructions: Please go directly to the emergency room for evaluation - Billing Disposition and Condition Condition: STABLE Disposition: [facility]
== END 2019-06-05 15:09 | disposition short-term general hospital (02) ==
LOC: UCEAST 13:37
DX: R55 Syncope and collapse (principal); R11.10 Vomiting, unspecified; R42 Dizziness and giddiness; M54.9 Dorsalgia, unspecified; I10 Essential (primary) hypertension; J44.9 Chronic obstructive pulmonary disease, unspecified; E78.5 Hyperlipidemia, unspecified; Z88.0 Allergy status to penicillin; Z91.030 Bee allergy status; Z79.899 Other long term (current) drug therapy; Z86.73 Personal history of transient ischemic attack (TIA), and cerebral infarction without residual deficits; Z79.02 Long term (current) use of antithrombotics/antiplatelets; Z87.891 Personal history of nicotine dependence; N39.0 Urinary tract infection, site not specified; E86.0 Dehydration; M62.838 Other muscle spasm; Z79.01 Long term (current) use of anticoagulants
CPT/HCPCS: 93005; 99212; G0463

== ENCOUNTER → 2019-06-05 15:32 | Emergency (ER) | payer MEDICARE ==
[~2019-06-05 15:32] MED LIST: Cyclobenzaprine TAB* 10 MG PO ONE; NS 0.9% 1000 ML** 1,000 ML IV ONE; Sulfamethox/Trimethoprim DS 800/160* TAB PO ONE
--- NOTE | 2019-06-05 17:56 | ED ---
Syncope/Near Syncope - HPI Summary HPI Summary: Patient complains of mid back pain 4 days, possible fall, one episode of syncope 2 days ago, amd fatigue, fever, decreased by mouth intake, weakness, one episode of vomiting over the past 2 days. Patient sent by urgent care to ED for further evaluation. Patient has history of syncope. Denies cough, sore throat, CP, SOB, diarrhea, change in urine. Medical history is HTN, TIA, COPD. - History Of Current Complaint Chief Complaint: EDFall Time Seen by Provider: 06/05/19 17:34 Hx Obtained From: Patient, Family/Reservations Specialist Onset/Duration: Gradual Onset, Lasting Days Timing: Intermittent Episode Lasting Context: Unwitnessed Activity At Onset: Exertion Associated Head Trauma: No Aggravating Factor(s): Position Change Alleviating Factor(s): Spontaneous Resolution Associated Signs And Symptoms: Vomiting - Allergies/Home Medications Allergies/Adverse Reactions: Allergies Allergy/AdvReac Type Severity Reaction Status Date / Time Penicillins Allergy Swelling Verified 06/05/19 16:01 bee stings Allergy Severe Swelling Uncoded 06/05/19 14:08 Of Face,Lips,& Throat Home Medications: Home Medications Cholecalciferol TAB* [Vitamin D TAB*] 1,000 unit PO DAILY 07/21/17 [History Confirmed 06/05/19] Citalopram TAB* [CeleXA TAB*] 10 mg PO DAILY 07/21/17 [History Confirmed ] Clopidogrel TAB* [Plavix TAB*] 75 mg PO DAILY 07/21/17 [History Confirmed ] Cyanocobalamin TAB* [Vitamin B12 TAB*] 1,000 mcg PO DAILY 07/21/17 [History Confirmed 06/05/19] Lovastatin (NF) [Mevacor (NF)] 40 mg PO DAILY 07/21/17 [History Confirmed ] Magnesium Oxide [Magnesium] 250 mg PO DAILY 07/21/17 [History Confirmed 06/05/19 ] Meclizine TAB* [Antivert 12.5 TAB*] 25 mg PO TID PRN 07/21/17 [History Confirmed 06/05/19] Cyclobenzaprine TAB* [Flexeril 10 MG TAB*] 10 mg PO TID PRN 4 Days #12 tab 06/05 [Rx] Nortriptyline CAP* [Pamelor CAP*] 10 mg PO BEDTIME 06/05/19 [History Confirmed 06/05/19] Sulfamethox/Trimethoprim DS* [Bactrim DS 800/160 TAB*] 1 tab PO BID 10 Days #20 tab 06/05/19 [Rx] PMH/Surg Hx/FS Hx/Imm Hx Endocrine/Hematology History: Reports: Hx Anticoagulant Therapy - Plavix Denies: Hx Diabetes, Hx Thyroid Disease Cardiovascular History: Reports: Hx Hypertension Denies: Hx Congestive Heart Failure, Hx Deep Vein Thrombosis, Hx Myocardial Infarction, Hx Pacemaker/ICD Respiratory History: Reports: Hx Asthma, Hx Chronic Obstructive Pulmonary Disease (COPD) Denies: Hx Lung Cancer, Hx Pneumonia, Hx Pulmonary Embolism GI History: Denies: Hx Gall Bladder Disease, Hx Gastrointestinal Bleed, Hx Ulcer, Hx Urosepsis History: Denies: Hx Kidney Stones, Hx Renal Disease Sensory History: Denies: Hx Hearing Aid Opthamlomology History: Denies: Hx Legally Blind EENT History: Denies: Hx Deafness Neurological History: Reports: Hx Transient Ischemic Attacks (TIA) - She had this about 4 years ago. Denies: Hx Dementia, Hx Migraine, Hx Seizures Psychiatric History: Reports: Hx Depression Denies: Hx Anxiety, Hx Panic Disorder, Hx Schizophrenia, Hx Bipolar Disorder - Cancer History Hx Chemotherapy: No Hx Radiation Therapy: No - Surgical History Surgery Procedure, Year, and Place: teeth extracted; R knee meniscus repair; GB removed,cataracts, APPENDECTOMY - Immunization History Date of Tetanus Vaccine: Unknown Infectious Disease History: No Infectious Disease History: Denies: Hx Clostridium Difficile, Hx Hepatitis, Hx Human Immunodeficiency Virus (HIV), Hx of Known/Suspected MRSA, Hx Shingles, Hx Tuberculosis, Hx Known/ Suspected VRE, Hx Known/Suspected VRSA, History Other Infectious Disease, Traveled Outside the [place] in Last 30 Days - Family History Known Family History: Positive: Cardiac Disease, Hypertension - Social History Alcohol Use: Rare Substance Use Type: Reports: None Hx Tobacco Use: No Smoking Status (MU): Former Smoker Review of Systems Positive: Fever Eyes: Negative ENT: Negative Cardiovascular: Negative Respiratory: Negative Positive: Vomiting Genitourinary: Negative Musculoskeletal: Negative Skin: Negative Positive: Syncope Psychological: Normal All Other Systems Reviewed And Are Negative: Yes Physical Exam - Summary Physical Exam Summary: Pain to palpation of paraspinal muscles of thoracic spine. No ecchymosis, erythema, deformity, swelling. PMS intact in bilateral lower extremities. Full range of motion of neck and jaw without pain. No indication of trauma to head. Neuro exam normal. Triage Information Reviewed: Yes Vital Signs On Initial Exam: Initial Vitals Temp Pulse Resp BP Pulse Ox 98.6 F 97 16 153/61 95 06/05/19 15:55 06/05/19 15:55 06/05/19 15:55 06/05/19 15:55 06/05/19 15:55 Vital Signs Reviewed: Yes Appearance: Positive: Well-Appearing Skin: Positive: Warm Head/Face: Positive: Normal Head/Face Inspection Eyes: Positive: Normal ENT: Positive: Normal ENT inspection Neck: Positive: Supple Respiratory/Lung Sounds: Positive: Clear to Auscultation Cardiovascular: Positive: Normal Abdomen Description: Positive: Nontender Musculoskeletal: Positive: Normal Neurological: Positive: Normal Psychiatric: Positive: Normal AVPU Assessment: Alert - [place] Coma Scale Best Eye Response: 4 - Spontaneous Best Motor Response: 6 - Obeys Commands Best Verbal Response: 5 - Oriented Coma Scale Total: 15 Procedures - Sedation Patient Received Moderate/Deep Sedation with Procedure: No Diagnostics - Vital Signs Vital Signs Temp Pulse Resp BP Pulse Ox 06/05/19 15:55 98.6 F 97 16 153/61 95 - Laboratory Result Diagrams: 06/05/19 17:53 06/05/19 17:53 Lab Statement: Any lab studies that have been ordered have been reviewed, and results considered in the medical decision making process. Course/Dx Course Of Treatment: Patient complains of mid back pain 4 days, possible fall, one episode of syncope 2 days ago, amd fatigue, fever, decreased by mouth intake , weakness, one episode of vomiting over the past 2 days. Patient sent by urgent care to ED for further evaluation. Patient has history of syncope. Denies cough, sore throat, CP, SOB, diarrhea, change in urine. Medical history is HTN, TIA, COPD. vital signs within normal limits. BUN 32. BUN/creatinine ratio 34.8. CRP 66. UA leuk trase 3+, WBC 2+. Flu negative. Chest x-ray negative. Brain CT negative. Lumbar spine CT negative. Thoracic spine CT negative. EKG sinus rhythm, heart rate of 93, normal P axis. Diagnosis dehydration and UTI. - Diagnoses Provider Diagnoses: Dehydration, UTI (urinary tract infection), Syncope, Muscle spasm Discharge ED - Sign-Out/Discharge Documenting (check all that apply): Patient Departure - Discharge Plan Condition: Stable Disposition: HOME Prescriptions: Cyclobenzaprine TAB* [Flexeril 10 MG TAB*] 10 mg PO TID PRN 4 Days #12 tab PRN Reason: Spasms Sulfamethox/Trimethoprim DS* [Bactrim DS 800/160 TAB*] 1 tab PO BID 10 Days #20 tab Patient Education Materials: Dehydration (ED), Urinary Tract Infection in Women (ED) Referrals: Lata Anderson DO [Primary Care Provider] - Additional Instructions: Take antibiotics as directed. Drink plenty of fluids to maintain hydration. Follow-up with primary care. Return to the ED for any new or worsening symptoms. - Billing Disposition and Condition Condition: STABLE Disposition: Home - Attestation Statements Provider Attestation: I was available for consult. This patient was seen by the JOCELYN. The patient was not presented to, seen by, or examined by me. Domingo Saldana MD
[2019-06-05 18:08] LABS: ABS Eosinophils 0.2 10^3/ul (0-0.6); ABS Lymphocytes 1.2 10^3/ul (1.0-4.8); ABS Monocytes 0.4 10^3/ul (0-0.8); ABS Neutrophils 5.1 10^3/ul (1.5-7.7); Eosinophil % 2.8 %; Hematocrit 37 % (35-47); Lymphocyte % 17.9 %; Mean Corpuscular HGB Conc 35 g/dL (31-36); Mean Corpuscular Hemoglobin 33 pg (27-31); Mean Corpuscular Volume 92 fL (80-97); Mean Platelet Volume 8.3 fL (7.4-10.4); Platelet Count 255 10^3/uL (150-450); Red Blood Count 4.01 10^6 /uL (3.70-4.87); Red Cell Distribution Width 14 % (10-15)
[2019-06-05 18:22] LABS: Albumin 4.1 g/dL (3.2-5.2); Albumin/Globulin Ratio 1.4 (1-3); BUN/Creatinine Ratio 34.8 (8-20); C Reactive Protein 66.54 mg/L (<8.01); Calcium 9.8 mg/dL (8.6-10.3); EGFR African American 70.4 (>60); EGFR Non-African American 58.2 (>60); Globulin 2.9 g/dL (2-4); Magnesium 2.1 mg/dL (1.9-2.7); Potassium 3.4 mmol/L (3.5-5.0); Total Bilirubin 0.3 mg/dL (0.2-1.0)
[2019-06-05 18:24] LABS: Troponin I 0.01 ng/mL (<0.03)
[2019-06-05 19:19] LABS: Influenza A Molecular Negative (Negative); Influenza B Molecular Negative (Negative)
[2019-06-05 19:29] LABS: TSH (Thyroid Stimulating Horm) 2.74 mcIU/mL (0.34-5.60)
[2019-06-05 19:58] LABS: Urine Appearance Clear; Urine Bacteria Absent (Absent); Urine Bilirubin Negative (Negative); Urine Blood Negative (Negative); Urine Color Yellow; Urine Glucose Negative (Negative); Urine Ketones Negative (Negative); Urine Nitrite Negative (Negative); Urine Protein Negative (Negative); Urine Red Blood Cell Absent (Absent); Urine Specific Gravity 1.015 (1.010-1.030); Urine Squamous Epithelial Cell Present (Absent); Urine Urobilinogen Negative (Negative); Urine White Blood Cell 2+(11-20/hpf) (Absent)
[2019-06-05 20:04] VITALS: BP 146/73
== END | disposition home or self-care (01) ==
LOC: ED 15:32
DX: N39.0 Urinary tract infection, site not specified (principal); E86.0 Dehydration; R55 Syncope and collapse; M62.838 Other muscle spasm; I10 Essential (primary) hypertension; J44.9 Chronic obstructive pulmonary disease, unspecified; F32.9 Major depressive disorder, single episode, unspecified; Z86.73 Personal history of transient ischemic attack (TIA), and cerebral infarction without residual deficits; Z90.89 Acquired absence of other organs; Z87.891 Personal history of nicotine dependence; Z79.01 Long term (current) use of anticoagulants; Z79.899 Other long term (current) drug therapy; Z88.0 Allergy status to penicillin
CPT/HCPCS: 36415; 70450; 71045; 72128; 72131; 80053; 81003; 81015; 83605; 83735; 84443; 84484; 85025; 86140; 87040; 87086; 93005; 96360; 99283; A9270-GY

== ENCOUNTER 2023-10-16 15:28 | Observation (INO) ==
[2023-10-16 16:55] LABS: ABS Basophils 0.1 10^3/uL (0.0-0.1); ABS Eosinophils 0.1 10^3/uL (0.0-0.5); ABS Lymphocytes 1.3 10^3/uL (1.0-4.8); ABS Monocytes 0.5 10^3/uL (0.0-0.9); ABS Neutrophils 7.3 10^3/uL (1.5-7.6); Hematocrit 36.4 % (35-45); Hemoglobin 12.3 g/dL (11.5-14.3); Lymphocyte % 13.8 %; Mean Corpuscular Hgb Conc 33.7 g/dL (31-36); Mean Corpuscular Volume 95.1 fL (80-97); Platelet Count 179 10^3/uL (150-450); Red Blood Count 3.83 10^6/uL (3.63-4.92); Red Cell Distribution Width 14.5 % (12-17); White Blood Count 9.2 10^3/uL (3.8-11.8)
[2023-10-16 18:20] LABS: Albumin 3.2 g/dL (3.2-5.2); Albumin/Globulin Ratio 1.5 (1-3); C Reactive Protein 139.06 mg/L (<8.01); Calcium 8.6 mg/dL (8.6-10.3); Creatinine, Serum 0.79 mg/dL (0.51-0.95); Globulin 2.2 g/dL (2-4); Potassium 3.8 mmol/L (3.5-5.0); Total Bilirubin 0.4 mg/dL (0.2-1.0); Total Protein 5.4 g/dL (6.4-8.9); eGFR CKD-EPI 71.9 (>60)
[2023-10-16 19:01] LABS: Urine Appearance Clear; Urine Bilirubin Negative (Negative); Urine Blood Negative (Negative); Urine Color Yellow; Urine Glucose Negative (Negative); Urine Ketones Negative (Negative); Urine Nitrite Negative (Negative); Urine Protein 1+ (>=30 mg/dL) (Negative); Urine Specific Gravity 1.035 (1.002-1.030); Urine Urobilinogen Negative (Negative); Urine pH 5.5 (5.0-8.0)
[2023-10-16 19:16] LABS: Urine Bacteria Absent /HPF (Absent); Urine Red Blood Cell Trace(0-2/hpf) /HPF (0-Trace); Urine Squamous Epithelial Cell Present /HPF (Absent); Urine White Blood Cell Trace(0-5/hpf) /HPF (0-Trace)
[2023-10-16] MEDS: Iohexol 350 (CONTRAST) 500 ML MDV IV ONE (20:47)
[2023-10-17] MEDS: NS 0.9% 1000 ml BAG 1,000 ML IV ONE (00:20)
[2023-10-17] MEDS: Magnesium Sulfate 2 gm BAG 2 GM/50 ML BAG IVPB ONE (03:39)
[2023-10-17] MEDS: Enoxaparin 40 MG/0.4 ML SYR SUBCUT SCH (03:40)
[2023-10-17 07:00] LABS: ABS Eosinophils 0.1 10^3/uL (0.0-0.5); ABS Lymphocytes 1.3 10^3/uL (1.0-4.8); ABS Monocytes 0.4 10^3/uL (0.0-0.9); ABS Neutrophils 5.4 10^3/uL (1.5-7.6); Eosinophil % 1.7 %; Hematocrit 38.7 % (35-45); Hemoglobin 12.9 g/dL (11.5-14.3); Lymphocyte % 18.5 %; Mean Corpuscular Hemoglobin 31.8 pg (27-33); Mean Corpuscular Hgb Conc 33.2 g/dL (31-36); Mean Corpuscular Volume 95.7 fL (80-97); Mean Platelet Volume 8.3 fL (7.5-11.2); Platelet Count 177 10^3/uL (150-450); Red Blood Count 4.04 10^6/uL (3.63-4.92); Red Cell Distribution Width 14.3 % (12-17); White Blood Count 7.3 10^3/uL (3.8-11.8)
[2023-10-17 07:53] LABS: Calcium 8.2 mg/dL (8.6-10.3); Creatinine, Serum 0.71 mg/dL (0.51-0.95); Magnesium 2.5 mg/dL (1.9-2.7); Potassium 3.7 mmol/L (3.5-5.0); eGFR CKD-EPI 81.7 (>60)
[2023-10-17] MEDS: Letrozole 2.5 MG TAB (NF) PO SCH (07:59)
[2023-10-17] MEDS: Mometasone/Formoter 200/5 MDI INH SCH (08:01)
[2023-10-17] MEDS: cefTRIAXone 1 gm/50 mL D5W 1 GM/50 ML BAG IV SCH (11:54)
[2023-10-17] MEDS: metroNIDAZOLE IV 500 MG/100ML 500 MG/100 ML BAG IVPB SCH (14:01)
[2023-10-17 15:44] LABS: Body Fluid Appearance Clear; Body Fluid Color Yellow; Body Fluid Mono 84 %; Body Fluid Source Pleural Fluid; Body Fluid Total Cells Counted 200
[2023-10-17 15:46] LABS: Body Fluid Total Nucleated 1027 /mcL
[2023-10-17] MEDS: Lactated Ringers 1000 ml BAG 1,000 ML IV SCH (18:20)
[2023-10-17] MEDS: Diphenoxylat/Atrop 2.5-0.025mg TAB PO PRN (18:25)
[2023-10-18] MEDS: Enoxaparin 40 MG/0.4 ML SYR SUBCUT SCH (06:00)
[2023-10-18 07:50] LABS: ABS Eosinophils 0.2 10^3/uL (0.0-0.5); ABS Monocytes 0.4 10^3/uL (0.0-0.9); ABS Neutrophils 4.4 10^3/uL (1.5-7.6); ABS Nucleated RBC 0.01 10^3/ul; Eosinophil % 3.3 %; Hematocrit 36.9 % (35-45); Hemoglobin 12.4 g/dL (11.5-14.3); Lymphocyte % 16.5 %; Mean Corpuscular Hemoglobin 32.2 pg (27-33); Mean Corpuscular Hgb Conc 33.6 g/dL (31-36); Mean Corpuscular Volume 95.8 fL (80-97); Mean Platelet Volume 8.7 fL (7.5-11.2); Nucleated Red Blood Cells % 0.1 %/100WBC (0.0-0.8); Platelet Count 176 10^3/uL (150-450); Red Blood Count 3.86 10^6/uL (3.63-4.92); Red Cell Distribution Width 14.5 % (12-17)
[2023-10-18 08:21] LABS: Anion Gap 8 mmol/L (2-16); Blood Urea Nitrogen 17 mg/dL (6-24); CO2 Carbon Dioxide 20 mmol/L (22-32); Calcium 8.1 mg/dL (8.6-10.3); Chloride 106 mmol/L (101-111); Creatinine, Serum 0.74 mg/dL (0.51-0.95); Glucose 89 mg/dL (70-100); Sodium 134 mmol/L (135-145); eGFR CKD-EPI 77.8 (>60)
[2023-10-18 11:58] LABS: Magnesium 1.8 mg/dL (1.9-2.7)
[2023-10-18] MEDS: Iohexol 300 (CONTRAST) 10 ML SDV IV ONE (18:19)
[2023-10-19] MEDS: Ondansetron 4 mg VIAL 2 MG/ML 2 ml VIAL IV ONE (06:48)
[2023-10-19 06:50] LABS: ABS Eosinophils 0.1 10^3/uL (0.0-0.5); ABS Lymphocytes 0.8 10^3/uL (1.0-4.8); ABS Monocytes 0.4 10^3/uL (0.0-0.9); ABS Neutrophils 3.7 10^3/uL (1.5-7.6); Eosinophil % 2.4 %; Hematocrit 31.5 % (35-45); Hemoglobin 10.9 g/dL (11.5-14.3); Lymphocyte % 16.8 %; Mean Corpuscular Hemoglobin 32.6 pg (27-33); Mean Corpuscular Hgb Conc 34.5 g/dL (31-36); Mean Corpuscular Volume 94.4 fL (80-97); Mean Platelet Volume 8.4 fL (7.5-11.2); Nucleated Red Blood Cells % 0.1 %/100WBC (0.0-0.8); Platelet Count 158 10^3/uL (150-450); Red Blood Count 3.33 10^6/uL (3.63-4.92)
[2023-10-19 07:03] LABS: Calcium 7.8 mg/dL (8.6-10.3); Creatinine, Serum 0.71 mg/dL (0.51-0.95); Magnesium 1.7 mg/dL (1.9-2.7); Potassium 3.1 mmol/L (3.5-5.0); eGFR CKD-EPI 81.7 (>60)
[2023-10-19] MEDS: Potassium Chlor 20 meq TAB.ER PO ONE (09:54)
[2023-10-19] MEDS: Magnesium Sulfate 2 gm BAG 2 GM/50 ML BAG IVPB ONE (09:55)
[2023-10-19] MEDS: Magnesium Sulfate IV 1GM/100ML 1 GM/100 ML BAG IV ONE (11:16)
[2023-10-19] MEDS: Iohexol 300 (CONTRAST) 10 ML SDV IV ONE (12:30)
[2023-10-19 14:10] VITALS: BP 101/76
[2023-10-19 15:09] LABS: Fluid Type, Protein, Total PLEURAL FLUID; Total Protein, BF 3.4 g/dL
[2023-10-19 15:10] LABS: Lactate Dehydrogenase, BF 86 U/L
[2023-10-21 18:09] LABS: Pancreatic Elastase Feces 469 mcg/g
== END 2023-10-19 15:50 | disposition home or self-care (01) ==
LOC: EDHOLD 15:28 → ED 15:28 → SUATTDRO 10-17 00:48 → MED 10-17 08:40
PROVIDERS: ADMIT Internal Medicine; ATTEND Internal Medicine